=== PATIENT | female | born 1960 | race Caucasian/White ===

== ENCOUNTER → 2016-05-05 | Outpatient (CLI) | payer BC ==
[~2016-05-05] MED LIST: AMPH30CA3 PO; OMEP40CA PO; SPRN100 PO; TRAM-10 PO
[2016-05-05 14:24] LABS: ALT/SGPT 36 U/L (12-78); BLOOD UREA NITROGEN 18 mg/dl (7-18); CALCIUM 9.7 mg/dl (8.5-10.1); CARBON DIOXIDE 27 mmol/L (21-32); CHLORIDE 103 mmol/L (98-107); CHOLESTEROL 300 mg/dl (0-200); GLUCOSE 97 mg/dl (70-99); POTASSIUM 4.1 mmol/L (3.5-5.1); SODIUM 139 mmol/L (136-145)
[2016-05-05 14:34] LABS: ALB/GLOB RATIO 1.2 (0.9-2); ALKALINE PHOSPHATASE 56 U/L (45-117); AST/SGOT 41 U/L (15-37); CHOLESTEROL/HDL RATIO 2.3; HDL CHOLESTEROL 133 mg/dl; LDL CHOLESTEROL CALCULATED 145 mg/dl; TRIGLYCERIDES 111 mg/dl (0-150); VERY LOW DENSITY LIPOPROT CALC 22 mg/dl
== END | disposition home or self-care (01) ==
LOC: C.LABBC 12:34
PROVIDERS: ATTEND Family Medicine
DX: E51.9 Thiamine deficiency, unspecified (principal); E78.5 Hyperlipidemia, unspecified; E03.9 Hypothyroidism, unspecified; E55.9 Vitamin D deficiency, unspecified

== ENCOUNTER → 2017-04-04 | Outpatient (CLI) | payer BC ==
--- NOTE | 2017-04-04 10:20 | DIAGNOSTIC IMAGING REPORT ---
L ANKLE MIN 3 VIEWS ROUTINE, L TIBIA/FIBULA 2 VIEWS ROUTINE HISTORY: 56 years-old Female M25.579 Ankle [id number] [id number] acute left ankle pain status post fall COMPARISON: None available TECHNIQUE: 3 views of the left ankle and 2 views of the left tibia and fibula FINDINGS: ANKLE: There is mild soft tissue swelling anterolaterally about the ankle. No osteochondral defect. There is no acute fracture or dislocation. Small Achilles and moderate plantar enthesophyte about the calcaneus. No opaque foreign body or large joint effusion. TIBIA/FIBULA: Minimal degenerative changes about the knee. No acute fracture or dislocation. IMPRESSION: Mild anterolateral soft tissue swelling about the ankle without acute fracture or dislocation. The above report was generated using voice recognition software. It may contain grammatical, syntax or spelling errors. Electronically signed by: Caleb Ocasio M.D. 04/04/2017 10:19 AM Dictated Date/Time: 04/04/2017 10:16 AM
--- NOTE | 2017-04-04 10:20 | DIAGNOSTIC IMAGING REPORT ---
L ANKLE MIN 3 VIEWS ROUTINE, L TIBIA/FIBULA 2 VIEWS ROUTINE HISTORY: 56 years-old Female M25.579 Ankle [id number] [id number] acute left ankle pain status post fall COMPARISON: None available TECHNIQUE: 3 views of the left ankle and 2 views of the left tibia and fibula FINDINGS: ANKLE: There is mild soft tissue swelling anterolaterally about the ankle. No osteochondral defect. There is no acute fracture or dislocation. Small Achilles and moderate plantar enthesophyte about the calcaneus. No opaque foreign body or large joint effusion. TIBIA/FIBULA: Minimal degenerative changes about the knee. No acute fracture or dislocation. IMPRESSION: Mild anterolateral soft tissue swelling about the ankle without acute fracture or dislocation. The above report was generated using voice recognition software. It may contain grammatical, syntax or spelling errors. Electronically signed by: Caleb Ocasio M.D. 04/04/2017 10:19 AM Dictated Date/Time: 04/04/2017 10:16 AM
== END | disposition home or self-care (01) ==
LOC: C.RAD 09:44
PROVIDERS: ATTEND Physician Assistant Medical
DX: M25.572 Pain in left ankle and joints of left foot (principal); M79.89 Other specified soft tissue disorders; W19.XXXA Unspecified fall, initial encounter

== ENCOUNTER → 2017-06-22 | Outpatient (CLI) | payer OTHER ==
[2017-06-22 17:11] LABS: ALBUMIN 4.4 gm/dl (3.4-5.0); ALT/SGPT 24 U/L (12-78); BLOOD UREA NITROGEN 11 mg/dl (7-18); CALCIUM 9.6 mg/dl (8.5-10.1); CARBON DIOXIDE 28 mmol/L (21-32); CHOLESTEROL 270 mg/dl (0-200); CREATININE 1.04 mg/dl (0.60-1.20); GLUCOSE 101 mg/dl (70-99); POTASSIUM 3.8 mmol/L (3.5-5.1); SODIUM 138 mmol/L (136-145)
[2017-06-22 17:21] LABS: ALKALINE PHOSPHATASE 54 U/L (45-117); AST/SGOT 21 U/L (15-37); LDL CHOLESTEROL CALCULATED 140 mg/dl; TOTAL PROTEIN 8.4 gm/dl (6.4-8.2)
== END | disposition home or self-care (01) ==
LOC: C.LABBC 14:08
PROVIDERS: ATTEND Physician Assistant Medical
DX: E55.9 Vitamin D deficiency, unspecified (principal); E78.5 Hyperlipidemia, unspecified; K76.0 Fatty (change of) liver, not elsewhere classified; E51.9 Thiamine deficiency, unspecified; E53.8 Deficiency of other specified B group vitamins; I10 Essential (primary) hypertension